=== PATIENT | male | born 1995 | race African-American/Black ===

== ENCOUNTER 2018-05-04 21:05 | Emergency (ER) | payer SELFPAY ==
[~2018-05-04] VITALS: Ht 190.5 cm; Wt 102.0 kg
[2018-05-05] MEDS ORDERED: LIDOCAINE HCL 1% 20ML VIAL (Pyxis) INJ INFIL ONE (02:45)
[2018-05-05] MEDS ORDERED: CEFTRIAXONE SODIUM 250 MG/VIAL IM ONE (02:45)
[2018-05-05] MEDS ORDERED: AZITHROMYCIN 500 MG TABLET PO ONE (02:45)
[2018-05-05 03:50] VITALS: BP 117/76
[2018-05-05 03:57] LABS: CLARITY URINE CLEAR (CLEAR); COLOR URINE YELLOW (YELLOW); KETONES URINE NEGATIVE (NEGATIVE); LEUKOCYTE ESTERASE URINE NEGATIVE (NEGATIVE); NITRITE URINE NEGATIVE (NEGATIVE); OCCULT BLOOD URINE NEGATIVE (NEGATIVE); PROTEIN URINE NEGATIVE (NEGATIVE); SPECIFIC GRAVITY URINE 1.005 (1.005-1.030); UROBILINOGEN URINE 0.2 E.U./dL (0.2-1.0)
[2018-05-07 08:14] LABS: CHLAMYDIA TRACHOMATIS NAA Negative (Negative); NEISSERIA GONORRHOEAE NAA Negative (Negative)
== END 2018-05-05 03:56 | disposition home or self-care (01) ==
LOC: ER 21:05
DX: N34.2 Other urethritis (principal); A64 Unspecified sexually transmitted disease; A54.9 Gonococcal infection, unspecified
CPT/HCPCS: 81003; 87491; 87591; 96372; 99284; J0696; J3490; Z7610